=== PATIENT | male | born 1955 | race Caucasian/White ===

== ENCOUNTER 2019-02-18 10:54 | Emergency (ER) | payer BC ==
--- NOTE | 2019-02-18 11:48 | ER ---
Nurse's Notes [facility] Name: Mike Carlton Age: 63 yrs Sex: Male : 1955 Arrival Date: 02/18/2019 Time: 10:55 Bed 11 Private MD: Diagnosis: Influenza due to identified novel influenza A virus Presentation: 02/18 11:15 Presenting complaint: Patient states: family member diagnosed with flu, +cough, iw congestion, started [place] [place]. Transition of care: patient was not received from another setting of care. Onset of symptoms was February 16, 2019. Risk Assessment: Do you want to hurt yourself or someone else? Patient reports no desire to harm self or others. Initial Sepsis Screen: Does the patient meet any 2 criteria? No. Patient's initial sepsis screen is negative. Does the patient have a suspected source of infection? No. Patient's initial sepsis screen is negative. Care prior to arrival:. 11:15 Method Of Arrival: Ambulatory iw 11:15 Acuity: GUS 4 iw Triage Assessment: 11:50 General: Appears in no apparent distress. Behavior is calm. iw 12:51 Pain: Denies pain. iw Historical: - Allergies: 11:17 PENICILLINS; iw - Home Meds: 11:17 losartan oral oral [Active]; iw - PMHx: 11:17 Hypertension; Hyperlipidemia; iw - Immunization history:: Adult Immunizations not up to date. - Ebola Screening: : Patient negative for fever greater than or equal to 101.5 degrees Fahrenheit, and additional compatible Ebola Virus Disease symptoms Patient denies exposure to infectious person Patient denies travel to an Ebola-affected area in the 21 days before illness onset No symptoms or risks identified at this time. - Social history:: Smoking status: Patient/guardian denies using tobacco. Screenin:17 Nutritional screening: No deficits noted. Tuberculosis screening: No symptoms or risk iw factors identified. Fall Risk None identified. 12:15 Abuse screen: Denies threats or abuse. Denies injuries from another. iw Assessment: 11:55 General: Appears in no apparent distress. General: Reports fever for feeling ill for. iw Pain: Denies pain. Neuro: Level of Consciousness is awake, alert, obeys commands, Oriented to person, place, time, situation, Moves all extremities. Full function. Cardiovascular: Patient's skin is warm and dry. Respiratory: Respiratory effort is even, unlabored, Respiratory pattern is regular, symmetrical. Derm: Skin is intact, is healthy with good turgor. Musculoskeletal: Range of motion: intact in all extremities. Vital Signs: 11:17 BP 145 / 85; Pulse 94; Resp 18 S; Temp 99.1; Pulse Ox 99% on R/A; Weight 84.37 kg; iw Height 5 ft. 8 in. (172.72 cm); 11:17 Body Mass Index 28.28 (84.37 kg, 172.72 cm) iw ED Course: 10:55 Patient arrived in ED. rg4 11:16 Triage completed. iw 11:17 Arm band placed on. iw 11:18 Lita Banks FNP-C is PHCP. kb 11:18 Tc Bobby MD is Attending Physician. kb 11:20 Patient has correct armband on for positive identification. iw 11:49 Christina Woody RN is Primary Nurse. iw 11:57 No provider procedures requiring assistance completed. Patient did not have IV access iw during this emergency room visit. Administered Medications: 11:58 Drug: Tamiflu 75 mg Route: PO; iw Outcome: 11:47 Discharge ordered by MD. kb 11:58 Discharged to home ambulatory. iw 11:58 Condition: good 11:58 Discharge instructions given to patient, Instructed on discharge instructions, follow up and referral plans. Demonstrated understanding of instructions, follow-up care, medications, Prescriptions given X 1. 11:58 Patient left the ED. iw Signatures: Lita Banks FNP-C FNP-Ckb Christina Woody RN RN iw Claudia Erickson rg4 Corrections: (The following items were deleted from the chart) 12:50 12:00 General: Appears in no apparent distress. iw iw 12:50 12:00 Neuro: Level of Consciousness is awake, alert, obeys commands, Oriented to iw person, place, time, situation, Moves all extremities. Full function iw 12:50 12:00 General: Reports fever for feeling ill for iw iw 12:50 12:00 Cardiovascular: Patient's skin is warm and dry. iw iw 12:50 12:00 Respiratory: Respiratory effort is even, unlabored, Respiratory pattern is iw regular, symmetrical, iw 12:50 12:00 Derm: Skin is intact, is healthy with good turgor, iw iw 12:50 12:00 Musculoskeletal: Range of motion: intact in all extremities, iw iw 12:50 12:00 Pain: Denies pain. iw iw
--- NOTE | 2019-02-18 11:49 | EDPHYS ---
Physician Documentation [facility] Name: Mike Carlton Age: 63 yrs Sex: Male : 1955 Arrival Date: 02/18/2019 Time: 10:55 Bed 11 Private MD: ED Physician Tc Bobby HPI: 02/18 11:20 This 63 yrs old Male presents to ER via Ambulatory with complaints of Flu kb Symptoms. 11:20 The patient or guardian reports cough, that is intermittent, described as moderate, kb with no sputum, flu symptoms, low-grade fever, myalgias. Onset: The symptoms/episode began/occurred 2 day(s) ago. Severity of symptoms: At their worst the symptoms were moderate, in the emergency department the symptoms are unchanged. Modifying factors: The symptoms are alleviated by nothing, the symptoms are aggravated by nothing. Associated signs and symptoms: Pertinent positives: rhinorrhea. The patient has not experienced similar symptoms in the past. The patient has not recently seen a physician. Pt reports cough, congestion and "feeling like crap" for 2 days. Daughter and grandkids had the flu. Unknown if he has had fever at home, but wakes up sweating at night.. Historical: - Allergies: 11:17 PENICILLINS; iw - Home Meds: 11:17 losartan oral oral [Active]; iw - PMHx: 11:17 Hypertension; Hyperlipidemia; iw - Immunization history:: Adult Immunizations not up to date. - Ebola Screening: : Patient negative for fever greater than or equal to 101.5 degrees Fahrenheit, and additional compatible Ebola Virus Disease symptoms Patient denies exposure to infectious person Patient denies travel to an Ebola-affected area in the 21 days before illness onset No symptoms or risks identified at this time. - Social history:: Smoking status: Patient/guardian denies using tobacco. ROS: 11:19 Neck: Negative for injury, pain, and swelling, Cardiovascular: Negative for chest pain, kb palpitations, and edema, Abdomen/GI: Negative for abdominal pain, nausea, vomiting, diarrhea, and constipation, Back: Negative for injury and pain, MS/Extremity: Negative for injury and deformity, Skin: Negative for injury, rash, and discoloration, Neuro: Negative for headache, weakness, numbness, tingling, and seizure. 11:19 Constitutional: Positive for body aches, fatigue, malaise. 11:19 ENT: Positive for rhinorrhea, sinus congestion. 11:19 Respiratory: Positive for cough, Negative for dyspnea on exertion, hemoptysis, orthopnea, pleurisy, shortness of breath, sputum production, wheezing. Exam: 11:19 Constitutional: This is a well developed, well nourished patient who is awake, alert, kb and in no acute distress. Head/Face: Normocephalic, atraumatic. ENT: Nares patent. No nasal discharge, no septal abnormalities noted. Tympanic membranes are normal and external auditory canals are clear. Oropharynx with no redness, swelling, or masses, exudates, or evidence of obstruction, uvula midline. Mucous membranes moist. Neck: Trachea midline, no thyromegaly or masses palpated, and no cervical lymphadenopathy. Supple, full range of motion without nuchal rigidity, or vertebral point tenderness. No Meningismus. Chest/axilla: Normal chest wall appearance and motion. Nontender with no deformity. No lesions are appreciated. Cardiovascular: Regular rate and rhythm with a normal S1 and S2. No gallops, murmurs, or rubs. Normal PMI, no JVD. No pulse deficits. Respiratory: Lungs have equal breath sounds bilaterally, clear to auscultation and percussion. No rales, rhonchi or wheezes noted. No increased work of breathing, no retractions or nasal flaring. Abdomen/GI: Soft, non-tender, with normal bowel sounds. No distension or tympany. No guarding or rebound. No evidence of tenderness throughout. Skin: Warm, dry with normal turgor. Normal color with no rashes, no lesions, and no evidence of cellulitis. MS/ Extremity: Pulses equal, no cyanosis. Neurovascular intact. Full, normal range of motion. Neuro: Awake and alert, GCS 15, oriented to person, place, time, and situation. Cranial nerves II-XII grossly intact. Motor strength 5/5 in all extremities. Sensory grossly intact. Cerebellar exam normal. Normal gait. Vital Signs: 11:17 BP 145 / 85; Pulse 94; Resp 18 S; Temp 99.1; Pulse Ox 99% on R/A; Weight 84.37 kg; iw Height 5 ft. 8 in. (172.72 cm); 11:17 Body Mass Index 28.28 (84.37 kg, 172.72 cm) MDM: 11:18 Patient medically screened. kb 11:19 Data reviewed: vital signs, nurses notes. Data interpreted: Pulse oximetry: on room air kb is 99 %. Interpretation: normal. 11:47 Counseling: I had a detailed discussion with the patient and/or guardian regarding: the kb historical points, exam findings, and any diagnostic results supporting the discharge/admit diagnosis, lab results, the need for outpatient follow up, a family practitioner, to return to the emergency department if symptoms worsen or persist or if there are any questions or concerns that arise at home. 02/18 11:18 Order name: Flu; Complete Time: 11:47 kb Administered Medications: 11:58 Drug: Tamiflu 75 mg Route: PO; Disposition: 17:35 Co-signature as Attending Physician, Tc Bobby MD. rn Disposition: 02/18/19 11:47 Discharged to Home. Impression: Influenza due to identified novel influenza A virus. - Condition is Stable. - Discharge Instructions: Influenza, Adult, [id number], Viral Respiratory Infection, [id number]. - Prescriptions for Tamiflu 75 mg Oral Capsule - take 1 capsule by ORAL route every 12 hours for 5 days; 10 capsule. - Medication Reconciliation Form, Thank You Letter, Antibiotic Education, Prescription Opioid Use form. - Follow up: Emergency Department; When: As needed; Reason: Worsening of condition. Follow up: Private Physician; When: 2 - 3 days; Reason: Recheck today's complaints, Continuance of care, Re-evaluation by your physician. Signatures: Dispatcher [employer] Lita Song, HARPAL-C OCCUP THERAPIST-Christina Kim, RN RN Tc Gr MD MD maternity floor supervisor: (The following items were deleted from the chart) 11:58 11:47 02/18/2019 11:47 Discharged to Home. Impression: Influenza due to identified novel influenza A virus. Condition is Stable. Forms are Medication Reconciliation Form, Thank You Letter, Antibiotic Education, Prescription Opioid Use. Follow up: Emergency Department; When: As needed; Reason: Worsening of condition. Follow up: Private Physician; When: 2 - 3 days; Reason: Recheck today's complaints, Continuance of care, Re-evaluation by your physician. kb
[2019-02-18] MEDS ORDERED: OSELTAMIVIR 75 MG CAP ONE (11:52)
[2019-02-18 12:16] VITALS: BP 145/85; TEMP 99.1; O2SAT 99
== END 2019-02-18 11:58 | disposition home or self-care (01) ==
LOC: ER 10:54
DX: J10.1 Influenza due to other identified influenza virus with other respiratory manifestations (principal); I10 Essential (primary) hypertension; E78.5 Hyperlipidemia, unspecified; Z88.0 Allergy status to penicillin
CPT/HCPCS: 87804; 99283